=== PATIENT | female | born 1975 | race Hispanic/Latino ===

== ENCOUNTER 2025-01-11 08:28 | Day surgery (SDC) | payer MEDICARE ==
[2025-01-11] VITALS (10 sets, daily range): BP systolic 108–156; BP diastolic 62–92; PULSE 64–94; RESP 15–18; TEMP 97–97.9
[~2025-01-11] VITALS: Ht 154.9 cm; Wt 74.4 kg
[2025-01-11] MEDS: DEXTROSE 50%-WATER 50 ML DISP.SYRIN IV ONE (10:12)
[2025-01-11] MEDS ORDERED: METO-408 PO (10:21)
[2025-01-11] MEDS ORDERED: SEMA1PEN3 SQ (10:21)
[2025-01-11] MEDS ORDERED: ISOS10TA2 PO (10:21)
[2025-01-11] MEDS ORDERED: HYDR10 PO (10:21)
[2025-01-11] MEDS ORDERED: FOLI1TAB85 PO (10:21)
[2025-01-11] MEDS ORDERED: TORS20TA4 PO (10:21)
[2025-01-11] MEDS: 0.9%NACL 1000ML 1,000 ML IV ONE (10:25)
== END 2025-01-11 13:35 | disposition home or self-care (01) ==
LOC: ENDO 08:28 → DAH 08:28 → ENDO 13:35
PROVIDERS: ATTEND Internal Medicine Gastroenterology
DX: Z12.11 Encounter for screening for malignant neoplasm of colon (principal); K29.50 Unspecified chronic gastritis without bleeding; K57.30 Diverticulosis of large intestine without perforation or abscess without bleeding; D50.9 Iron deficiency anemia, unspecified; K74.60 Unspecified cirrhosis of liver; R10.11 Right upper quadrant pain; K31.A0 Gastric intestinal metaplasia, unspecified; K74.69 Other cirrhosis of liver; K44.9 Diaphragmatic hernia without obstruction or gangrene; R93.2 Abnormal findings on diagnostic imaging of liver and biliary tract; I25.2 Old myocardial infarction; I10 Essential (primary) hypertension; I48.91 Unspecified atrial fibrillation; Z95.0 Presence of cardiac pacemaker; Z98.890 Other specified postprocedural states; Z98.891 History of uterine scar from previous surgery; Z79.899 Other long term (current) drug therapy
CPT/HCPCS: 43239; 45378; 82948 ×4; 81025; J7030; J7070; J2704; A4620; A4215; J3490